=== PATIENT | female | born 1965 | race Caucasian/White ===

== ENCOUNTER 2016-05-31 08:17 | Emergency (ER) | payer OTHER ==
[~2016-05-31] VITALS: Ht 157.5 cm; Wt 90.7 kg
[~2016-05-31 08:17] MED LIST: BENAZEPRIL10 M1 PO
[2016-05-31 08:27] VITALS: BP 132/112
--- NOTE | 2016-05-31 08:30 | NUR ---
PATIENT PRESENTS TO ED DUE TO RIGHT EAR ACHE ,SORE THROAT, HEADACHE STARTED YESTERDAY . PT STATES I TOOK MY BENAZEPRIL 10MG . DENIES N/V/D; SKIN IS PINK/WARM/DRY; AAOX4 WITH EVEN AND STEADY GAIT; LUNGS CLEAR BL; HR EVEN AND REGULAR; PT DENIES ANY FEVER, CP, SOB, OR COUGH AT THIS TIME; PATIENT STATES PAIN OF 10/10 AT THIS TIME; PATIENT POSITIONED FOR COMFORT; HOB ELEVATED; BEDRAILS UP X2; BED DOWN. ER MD MADE AWARE OF PT STATUS.
--- NOTE | 2016-05-31 08:32 | NUR ---
PATIENT AMBULATED TO BED 3 AT THIS TIME,
--- NOTE | 2016-05-31 08:44 | NUR ---
relayed to dr. ferrara result of urine dipstick and preg.
--- NOTE | 2016-05-31 08:48 | NUR ---
dr. ferrara at bedside
[2016-05-31] MEDS ORDERED: IBUPROFEN 800 MG TAB PO ONE (08:50)
--- NOTE | 2016-05-31 09:11 | NUR ---
PT BACK FROM X RAY PT AAO VIA WHEELCHAIR.
--- NOTE | 2016-05-31 09:16 | NUR ---
DR. CRUM AT BEDSIDE
[2016-05-31 09:26] VITALS: BP 121/70
--- NOTE | 2016-05-31 09:27 | NUR ---
Patient discharged with v/s stable. Written and verbal after care instructions given and explained. Patient alert, oriented and verbalized understanding of instructions. Ambulatory with steady gait. All questions addressed prior to discharge. ID band removed. Patient advised to follow up with PMD. Rx of MOTRIN,THROAT SPRAY AND OMEPRAZOLE given. Patient educated on indication of medication including possible reaction and side effects. Opportunity to ask questions provided and answered.
== END 2016-05-31 09:27 | disposition home or self-care (01) ==
LOC: MED 08:29
DX: M62.838 Other muscle spasm (principal); R07.89 Other chest pain; R13.10 Dysphagia, unspecified; I10 Essential (primary) hypertension; R51 Headache

== ENCOUNTER 2018-06-18 19:23 | Emergency (ER) | payer OTHER ==
[~2018-06-18] VITALS: Ht 157.5 cm; Wt 94.8 kg
[~2018-06-18 19:23] MED LIST changes: +BENA10TA17 PO; -BENAZEPRIL10 M1 PO
[2018-06-18 19:27] VITALS: BP 158/69
--- NOTE | 2018-06-18 19:30 | NUR ---
PT PROVIDING URINE, THEN AMBULATING TO BED 2 WITH VSS.
[2018-06-18] MEDS ORDERED: KETOROLAC 30 MG/ML VIAL IM ONE (19:55)
--- NOTE | 2018-06-18 19:57 | NUR ---
X-RAY AT BEDSIDE.
--- NOTE | 2018-06-18 20:02 | NUR ---
PT BIB SELF C/O RIGHT FLANK PAIN X2 WEEKS. PT STATES SHE IS HAVING BURNING W/ URINATION, FREQUENT URINATION PATTERN, DYSURIA, DENIES HEMATURIA X2 WEEKS. RIGHT FLANK PAIN IS 10/10 SHARP, NOT RADIATING AT THIS TIME. --DENIES N/V/D; SKIN IS PINK/WARM/DRY; AAOX4 WITH EVEN AND STEADY GAIT; LUNGS CLEAR BL; HR EVEN AND REGULAR; PT DENIES ANY FEVER, CP, SOB, OR COUGH AT THIS TIME; VSS; PATIENT POSITIONED FOR COMFORT; HOB ELEVATED; BEDRAILS UP X1; BED DOWN. ER MD MADE AWARE OF PT STATUS. WILL CONTINUE TO MONITOR. PMH: HTN RX: LISINOPRIL
[2018-06-18 21:22] LABS: APPEARANCE,URINE CLEAR (CLEAR); BILIRUBIN,URINE NEGATIVE (NEGATIVE); BLOOD, URINE TRACE-L (NEGATIVE); COLOR,URINE YELLOW (YELLOW); LEUKOCYTE ESTERASE ,URINE 1+ (NEGATIVE); NITRITE, URINE NEGATIVE (NEGATIVE); PH,URINE 6.5 (5.0-9.0); UGLUCOSE NEGATIVE (NEGATIVE)
[2018-06-18 21:23] LABS: RBC,URINE 0-5 /HPF (0-5)
[2018-06-18 22:14] VITALS: BP 130/72
--- NOTE | 2018-06-18 22:14 | NUR ---
Patient discharged with v/s stable. Written and verbal after care instructions given and explained. Patient alert, oriented and verbalized understanding of instructions. Ambulatory with steady gait. All questions addressed prior to discharge. ID band removed. Patient advised to follow up with PMD. Rx of NAPROSYN, VALIUM given. Patient educated on indication of medication including possible reaction and side effects. Opportunity to ask questions provided and answered.
== END 2018-06-18 22:14 | disposition home or self-care (01) ==
LOC: MED 19:23
DX: M54.6 Pain in thoracic spine (principal); I10 Essential (primary) hypertension; Z79.899 Other long term (current) drug therapy
CPT/HCPCS: 71045; 81001; 81025; 87086; 96372; 99284; J1885; Q0092; 87186

== ENCOUNTER 2021-11-06 21:23 | Emergency (ER) | payer OTHER ==
[~2021-11-06 21:23] MED LIST changes: -BENA10TA17 PO; +BENA10TA60 PO
--- NOTE | 2021-11-06 21:52 | NUR ---
Called first time- no show in lobby or outside.
--- NOTE | 2021-11-06 22:06 | NUR ---
Called second time- no show in lobby or outside.
--- NOTE | 2021-11-06 22:11 | NUR ---
Patient LWBS before triage.
== END 2021-11-06 22:11 | disposition left against medical advice (07) ==
LOC: MED 21:23
DX: R30.9 Painful micturition, unspecified (principal); Z53.21 Procedure and treatment not carried out due to patient leaving prior to being seen by health care provider